=== PATIENT | male | born 1960 | race Caucasian/White ===

== ENCOUNTER → 2017-07-28 | Outpatient (REF) | LOC: ZLAB.WCH 14:52 | DX: Z01.89 Encounter for other specified special examinations (principal) | CPT/HCPCS: G0103 ==

== ENCOUNTER → 2018-07-22 | Outpatient (REF) ==
[2018-07-22 16:43] LABS: PSA-TOTAL 1.25 ng/mL (0-4)
[2018-07-22 17:33] LABS: THYROID STIMULATING HORMONE 1.26 uIU/mL (0.465-4.680)
== END ==
LOC: ZLAB.WCH 15:54
PROVIDERS: Physician Assistant
DX: Z01.89 Encounter for other specified special examinations (principal)
CPT/HCPCS: G0103